=== PATIENT | male | born 1940 | race Caucasian/White ===

== ENCOUNTER → 2016-03-22 | Outpatient (REF) | payer MEDICARE ==
[~2016-03-22] MED LIST: /ADVA50050 IN; /ADVA50050 INH; /CIPR75TA OR; /MOXI40TA OR; ADV250INH INH; ALBU17IN INH; ALBU17IN2 INH; ALBUTEROL INH; ALPR0.25 PO; CLEO150C PO; COLA100C2 OR; LABE100T2 OR; LEVA250T PO; MYCOSTATIN SS; POTA75TA OR; PRED10TA PO; PRED20TA OR; PRED50TA OR; XANA0.25 PO
== END ==
LOC: M LAB REF 12:54
PROVIDERS: ATTEND Surgery
DX: D04.4 Carcinoma in situ of skin of scalp and neck (principal)

== ENCOUNTER 2016-05-03 12:54 | Emergency (ER) | payer MEDICARE ==
[~2016-05-03] VITALS: Ht 175.3 cm; Wt 65.8 kg
[2016-05-03] MEDS: IPRATROPIUM 0.5MG/ALBUTEROL 2.5MG INH SOL UD 3ML (DUONEB)(J7620) NEB SCH ×3 (14:48→15:06)
--- NOTE | 2016-05-03 15:52 | REP ---
Chest x-ray: Two views. History: Shortness of breath. Comparison study June 14, 2015. Findings: The lungs are hyperinflated as before consistent with COPD. There is a increase in the AP diameter of the chest and flattening of the diaphragms. No infiltrate is seen. EKG monitoring electrodes and oxygen delivery tubing are seen. There are degenerative changes in the thoracic spine. Heart size is normal. Pulmonary vasculature is not increased. Nipple silhouettes are visible in the mid lung field bilaterally as before. Impression: Hyperinflation consistent with COPD. No acute infiltrate. Signed by Lam Hong MD 05/03/2016 05:45 P
[2016-05-03] MEDS ORDERED: DOXY-278 PO (15:54)
[2016-05-03] MEDS ORDERED: MEDR4PAK PO (15:55)
[2016-05-03] MEDS ORDERED: DOXYCYCLINE HYCLATE 100 MG TAB PO ONE (16:00)
[2016-05-03 17:21] VITALS: BP 177/86
--- NOTE | 2016-05-04 20:07 | ECGEPIP ---
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
== END 2016-05-03 17:33 | disposition home or self-care (01) ==
LOC: M ED 14:27
DX: J44.1 Chronic obstructive pulmonary disease with (acute) exacerbation (principal); K40.90 Unilateral inguinal hernia, without obstruction or gangrene, not specified as recurrent; Z87.891 Personal history of nicotine dependence; Z85.038 Personal history of other malignant neoplasm of large intestine; Z91.041 Radiographic dye allergy status; Z88.8 Allergy status to other drugs, medicaments and biological substances; Z88.1 Allergy status to other antibiotic agents; Z88.0 Allergy status to penicillin; Z91.018 Allergy to other foods; Z91.010 Allergy to peanuts; Z79.899 Other long term (current) drug therapy

== ENCOUNTER 2016-11-28 14:15 | Emergency (ER) | payer MEDICARE ==
[~2016-11-28] VITALS: Ht 175.3 cm; Wt 72.7 kg
[~2016-11-28 14:15] MED LIST changes: +DOXY-278 PO; +LEVA1TAB PO; -LEVA250T PO; +MEDR4PAK PO
[2016-11-28] MEDS ORDERED: ASPIRIN 81 MG CHEW TABLET PO ONE (14:30)
[2016-11-28 14:57] LABS: BASO % 0.2 % (0.0-1.0); EOS % 0.1 % (0.0-3.0); IMMATURE GRANULOCYTE % 0.3 % (0-0); LYMPH # 0.8 10^3/uL (1.5-4.5); MEAN CORPUSCULAR HEMOGLOBIN 31.4 pg (27.0-33.0); MEAN CORPUSCULAR HGB CONC 33.2 g/dl (32.0-36.5); MEAN CORPUSCULAR VOLUME 94.7 fl (80.0-96.0); MONO % 7.4 % (0.0-5.0); NEUTROPHILS # 13.9 10^3/uL (1.8-7.7); PLATELET COUNT, AUTOMATED 259 10^3/uL (150-450); RED CELL DISTRIBUTION WIDTH 12.1 % (11.5-14.5)
[2016-11-28] MEDS ORDERED: IPRATROPIUM 0.5MG/ALBUTEROL 2.5MG INH SOL UD 3ML (DUONEB)(J7620) NEB ONE (15:00)
[2016-11-28] MEDS ORDERED: methylPREDNISolone INJ 125 MG/2 ML VIAL (J2930) IV ONE (15:00)
[2016-11-28] MEDS ORDERED: diphenhydrAMINE INJ 50MG/ML VIAL (J1200) IV ONE (15:15)
--- NOTE | 2016-11-28 15:23 | REP ---
CHEST, PORTABLE: AP portable view of the chest is performed and compared to prior studies, the most recent of which is 05/03/2016. There is diffuse interstitial fibrosis which appears essentially stable. No definite superimposed acute infiltrate is seen. Heart is normal in size and the mediastinal silhouette is unchanged. There appears to be a nipple shadow projecting at the left lung base. IMPRESSION: Chronic changes appear stable without evidence of acute infiltrate. Signed by Terry Self MD 11/28/2016 04:16 P
[2016-11-28 15:28] LABS: ALBUMIN 3.8 GM/DL (3.2-5.2); ALKALINE PHOSPHATASE 69 U/L (45-117); ALT/SGPT 19 U/L (12-78); ANION GAP 6 MEQ/L (8-16); AST/SGOT 15 U/L (15-37); BILIRUBIN,DIRECT 0.2 MG/DL (0.0-0.2); BILIRUBIN,TOTAL 1.1 MG/DL (0.2-1.0); BLOOD UREA NITROGEN 13 MG/DL (7-18); CALCIUM LEVEL 9.1 MG/DL (8.8-10.2); CARBON DIOXIDE LEVEL 29 MEQ/L (21-32); CHLORIDE LEVEL 101 MEQ/L (98-107); CREATININE FOR GFR 1.19 MG/DL (0.70-1.30); GLOMERULAR FILTRATION RATE > 60.0 (>42); GLUCOSE, FASTING 109 MG/DL (83-110); POTASSIUM SERUM 4.1 MEQ/L (3.5-5.1); SODIUM LEVEL 136 MEQ/L (136-145); TOTAL PROTEIN 7.6 GM/DL (6.4-8.2)
[2016-11-28 15:35] LABS: ADD MORPHOLOGY? NO; MONO # 1.2 10^3/uL (0.0-0.8)
[2016-11-28] MEDS ORDERED: ISOVUE-370 76% 100ML VIAL (Q9967) As Ordered ONE (15:46)
--- NOTE | 2016-11-28 16:36 | REP ---
Chest CT with IV contrast, CT pulmonary angiography: There are no emboli in the pulmonary trunk or in the central pulmonary arteries. There are no emboli in the pulmonary lobe or segment branches. There are numerous bulla throughout the lung farr bilaterally compatible with bullous emphysema. There is a parenchymal scar inferiorly in the lingula, similar to the comparison CT of 07/29/2012. There is a calcified granuloma in the anterior segment of the lower lobe. There are no infiltrates or effusions. There is no mediastinal or hilar adenopathy. Thoracic aorta is unremarkable. Cardiac size normal. There is no pericardial effusion. The visualized upper abdominal contents are unremarkable except for renal cortical cysts. There is a nonobstructive calcification in the upper pole left kidney. Impression: There are no pulmonary emboli. There are no acute infiltrates or effusions. 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 There is a chronic parenchymal scar inferiorly in the lingula. There is a nonobstructive calculus in the upper pole of the left kidney. Signed by Terry Turpin MD 11/28/2016 04:27 P
[2016-11-28] MEDS ORDERED: DOXY100C37 PO (17:44)
[2016-11-28 18:01] VITALS: BP 151/65
--- NOTE | 2016-11-29 06:24 | ECGEPIP ---
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
== END 2016-11-28 18:10 | disposition home or self-care (01) ==
LOC: M ED 14:15
DX: R06.02 Shortness of breath (principal); R07.9 Chest pain, unspecified; J44.9 Chronic obstructive pulmonary disease, unspecified; Z87.891 Personal history of nicotine dependence
CPT/HCPCS: 36415; 71010; 71275; 80048; 80076; 82550; 82553; 83690; 83880; 84484; 85025; 93005; 93041; 94640; 94760; 96374; 96375; 99285; G0103; J1200; J2930; Q9967

== ENCOUNTER 2018-07-23 19:30 | Emergency (ER) | payer MEDICARE ==
[~2018-07-23 19:30] MED LIST changes: -/ADVA50050 IN; -/ADVA50050 INH; -/MOXI40TA OR; +ADVA1AER2 IN; +ADVA1AER2 INH; +AVEL1TAB2 OR; -DOXY-278 PO; +DOXY-350 PO; +DOXY100C37 PO; -LEVA1TAB PO; +LEVA250T13 PO; +PRED-351 PO; -PRED10TA PO
--- NOTE | 2018-07-23 21:11 | REP ---
Clinical: Hematuria. Technique: Axial noncontrast images from the lung bases to the pubic symphysis with coronal and sagittal re-formations. Comparison: 06/24/2007 Findings: Lung bases demonstrate emphysematous changes and fibrosis/scarring. Liver, spleen, pancreas, gallbladder, bilateral adrenal glands and right kidney are normal. Left kidney includes 2 mm nonobstructing calculus and rounded lesions suggesting simple and complex cysts. No perinephric stranding or hydroureteronephrosis. The enteric system is without obstruction or acute inflammatory process and postsurgical changes in the right lower quadrant may reflect prior appendectomy. Scattered sigmoid diverticula are appreciated along with left inguinal hernia containing nonobstructed sigmoid colon. Pelvis demonstrates a 2.0 cm bladder stone along with enlarged prostate gland having mass effect on the base of the bladder. No pelvic fluid or ascites. No free air. No adenopathy. Ventral hernia repair with mesh identified. Atherosclerotic changes to the aorta without aneurysm. Musculoskeletal structures demonstrate osteopenia and degenerative changes. Impression: 1. 2 mm nonobstructing left renal calculus and 2 cm bladder stone identified along with a rounded renal lesions suggesting simple and complex cysts. No perinephric stranding or hydroureteronephrosis. 2. Left inguinal hernia contains fat and nonobstructed sigmoid colon. 3. Scattered colonic diverticula without acute diverticulitis. 4. Enlarged prostate gland with mass effect on the base of the bladder. 5. Atherosclerotic changes to the vasculature and degenerative changes to the musculoskeletal structures. Electronically Signed by Donta Mohan MD 07/23/2018 09:03 P
[2018-07-23 21:21] LABS: BASO # 0.1 10^3/uL (0.0-0.2); BASO % 0.6 % (0.0-1.0); EOS # 0.2 10^3/uL (0.0-0.50); EOS % 1.7 % (0.0-3.0); HEMATOCRIT 42.5 % (42.0-52.0); HEMOGLOBIN 13.5 g/dl (13.5-17.5); LYMPH % 8.8 % (24.0-44.0); MEAN CORPUSCULAR HEMOGLOBIN 29.7 pg (27.0-33.0); MEAN CORPUSCULAR HGB CONC 31.8 g/dl (32.0-36.5); MEAN CORPUSCULAR VOLUME 93.4 fl (80.0-96.0); MONO # 0.6 10^3/uL (0.0-0.8); MONO % 5.5 % (0.0-5.0); NEUTROPHILS # 9.1 10^3/uL (1.8-7.7); NEUTROPHILS % 83.1 % (36.0-66.0); PLATELET COUNT, AUTOMATED 331 10^3/uL (150-450); RED BLOOD COUNT 4.55 10^6/uL (4.30-6.10)
[2018-07-23 21:28] LABS: VENOUS BASE EXCESS -0.6 (-2.0-2.0); VENOUS HCO3 27.6 MEQ/L (23.0-27.0); VENOUS PARTIAL PRESSURE CO2 60.7 mmHg (38.0-50.0); VENOUS PARTIAL PRESSURE O2 36.3 mmHg (30.0-50.0); VENOUS PH 7.276 UNITS (7.330-7.430); VENOUS STANDARD HCO3 23.1 MEQ/L; VENOUS TOTAL CO2 29.5 MEQ/L (24.0-28.0)
[2018-07-23 21:38] LABS: INR 0.98; PROTHROMBIN TIME 13.1 SECONDS (12.1-14.4)
[2018-07-23 22:00] LABS: ALBUMIN 3.2 GM/DL (3.2-5.2); ALT/SGPT 25 U/L (12-78); BILIRUBIN,DIRECT 0.1 MG/DL (0.0-0.2); BILIRUBIN,TOTAL 0.5 MG/DL (0.2-1.0); BLOOD UREA NITROGEN 17 MG/DL (7-18); CALCIUM LEVEL 8.7 MG/DL (8.8-10.2); CARBON DIOXIDE LEVEL 27 MEQ/L (21-32); CHLORIDE LEVEL 105 MEQ/L (98-107); CPK CREATINE PHOSPHOKINASE 113 U/L (39-308); GLOMERULAR FILTRATION RATE > 60.0 (>42); GLUCOSE, FASTING 83 MG/DL (70-100); MB/CK RELATIVE INDEX 1.77 (< OR =4); NT-PRO BNP 211 PG/ML (<450); POTASSIUM SERUM 4.5 MEQ/L (3.5-5.1); SODIUM LEVEL 142 MEQ/L (136-145); TOTAL PROTEIN 7.4 GM/DL (6.4-8.2); TROPONIN I < 0.02 NG/ML (< 0.10)
[2018-07-23 23:00] VITALS: BP 170/82
[2018-07-23] MEDS ORDERED: CEFD1CAP8 PO (23:07)
[2018-07-23] MEDS ORDERED: CEFDINIR 300 MG CAP (OMNICEF) PO ONE (23:15)
[2018-07-23] MEDS ORDERED: oxygen (23:23)
--- NOTE | 2018-07-24 09:05 | REP ---
PORTABLE CHEST X-RAY: Single view. HISTORY: Dyspnea and cough. COMPARISON CHEST X-RAY: November 28, 2016. FINDINGS: Oxygen delivery tubing is seen. The lungs are quite hyperinflated consistent with COPD. No infiltrate is seen. Pleural angles are sharp. Heart size is normal. 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 This is unchanged. IMPRESSION: Hyperinflation consistent with COPD. No acute abnormality. Azygos venous lobe. Electronically Signed by Lam Hong MD 07/24/2018 09:56 A
--- NOTE | 2018-07-24 19:29 | ECGEPIP ---
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
== END 2018-07-23 23:48 | disposition home or self-care (01) ==
LOC: M ED 19:30
DX: R06.02 Shortness of breath (principal); N30.91 Cystitis, unspecified with hematuria; N21.0 Calculus in bladder; K08.89 Other specified disorders of teeth and supporting structures; I10 Essential (primary) hypertension; J44.9 Chronic obstructive pulmonary disease, unspecified; N40.0 Benign prostatic hyperplasia without lower urinary tract symptoms; Z79.899 Other long term (current) drug therapy; Z99.81 Dependence on supplemental oxygen; Z87.891 Personal history of nicotine dependence

== ENCOUNTER 2022-08-28 19:31 | Inpatient (IN) | payer MEDICARE ==
[~2022-08-28] VITALS: Ht 175.3 cm; Wt 54.7 kg
[~2022-08-28 19:31] MED LIST changes: +CEFD300C41 PO; -DOXY-350 PO; +DOXY-443 PO; +DOXY-444 PO; -DOXY100C37 PO; +oxygen
[2022-08-28] MEDS ORDERED: NS 1,000 ML IV ONE (19:45)
[2022-08-28 20:06] LABS: VENOUS BASE EXCESS -3.4 (-2.0-2.0); VENOUS HCO3 27.5 MMOL/L (23.0-27.0); VENOUS O2 SATURATION 65.5 % (60.0-80.0); VENOUS PARTIAL PRESSURE CO2 79.2 mmHg (38.0-50.0); VENOUS PARTIAL PRESSURE O2 41.1 mmHg (30.0-50.0); VENOUS PH 7.159 UNITS (7.330-7.430); VENOUS STANDARD HCO3 20.9 MMOL/L
[2022-08-28 20:16] LABS: BASO % 0.2 % (0.0-1.0); HEMATOCRIT 43.1 % (42.0-52.0); HEMOGLOBIN 13.8 g/dl (13.5-17.5); LYMPH # 0.4 10^3/uL (1.5-5.0); LYMPH % 2.2 % (24.0-44.0); MEAN CORPUSCULAR HEMOGLOBIN 30.9 pg (27.0-33.0); MEAN CORPUSCULAR VOLUME 96.4 fl (80.0-96.0); MONO # 0.6 10^3/uL (0.0-0.8); MONO % 3.5 % (2.0-8.0); NEUTROPHILS # 15.9 10^3/uL (1.5-8.5); NEUTROPHILS % 93.5 % (36.0-66.0); PLATELET COUNT, AUTOMATED 178 10^3/uL (150-450); RED BLOOD COUNT 4.47 10^6/uL (4.30-6.10)
[2022-08-28 20:33] LABS: CK-MB VALUE MASS 11.7 NG/ML (<3.6)
[2022-08-28 20:34] LABS: ETHYL ALCOHOL (ETHANOL) < 0.003 % (0.000-0.010)
[2022-08-28 20:35] LABS: ALBUMIN 3.1 G/DL (3.2-5.2); ALKALINE PHOSPHATASE 77 U/L (46-116); ALT/SGPT 27 U/L (7.0-40); AST/SGOT 32 U/L (<34); BILIRUBIN,DIRECT 0.3 MG/DL (<0.4); BILIRUBIN,TOTAL 0.8 MG/DL (0.3-1.2); BLOOD UREA NITROGEN 60 MG/DL (9-23); CARBON DIOXIDE LEVEL 29 MMOL/L (20-31); CHLORIDE LEVEL 105 MMOL/L (98-107); CPK CREATINE PHOSPHOKINASE 843 U/L (46-171); CREATININE FOR GFR 2.52 MG/DL (0.70-1.30); GLOMERULAR FILTRATION RATE 26.1 (>35); GLUCOSE, FASTING 97 MG/DL (74-106); MAGNESIUM LEVEL 2.6 MG/DL (1.8-2.4); MB/CK RELATIVE INDEX 1.38 (< OR =4); POTASSIUM SERUM 4.7 MMOL/L (3.5-5.1); SODIUM LEVEL 145 MMOL/L (136-145); TOTAL PROTEIN 6.5 G/DL (5.7-8.2)
[2022-08-28 20:37] LABS: THYROID STIMULATING HORMONE 0.528 uIU/ML (0.55-4.78)
[2022-08-28 20:46] LABS: INR 1.05; PROTHROMBIN TIME 13.9 SECONDS (12.5-14.5)
[2022-08-28 20:47] LABS: PARTIAL THROMBOPLASTIN TIME 36.8 SECONDS (24.8-34.2)
[2022-08-28 21:19] LABS: ABG BASE EXCESS -2.2 (-2.0-2.0); ABG HCO3 26.7 MMOL/L (22.0-26.0); ABG O2 SATURATION 99.4 % (95.0-99.0); ABG PARTIAL PRESSURE O2 189.9 mmHg (75.0-100.0); ABG STANDARD HCO3 22.6 MMOL/L. (22.0-26.0); ABG TOTAL CO2 28.7 MMOL/L (23.0-31.0)
[2022-08-28 21:20] LABS: ABG PARTIAL PRESSURE CO2 65.7 mmHg (35.0-45.0); ABG pH (ARTERIAL) 7.226 UNITS (7.350-7.450)
[2022-08-28] MEDS ORDERED: NS IV ONE (21:45)
[2022-08-28] MEDS ORDERED: IPRATROPIUM 0.5MG/ALBUTEROL 2.5MG INH SOL UD 3ML (DUONEB) NEB ONE (22:35)
[2022-08-28] MEDS ORDERED: methylPREDNISolone 125MG 2ML VIAL IV ONE (22:35)
[2022-08-28] MEDS ORDERED: ALBUTEROL SULFATE 2.5MG/0.5ML INH NEB SOLN INH ONE (22:35)
[2022-08-28 22:38] LABS: RSV AMPLIFICATION NEGATIVE (NEGATIVE)
[2022-08-28] MEDS ORDERED: cefTRIAXone SOD 2 GM in D5W MINI-BAG PLUS 50 ML IV ONE (22:55)
[2022-08-28 23:04] LABS: MB/CK RELATIVE INDEX 1.26 (< OR =4)
[2022-08-29] VITALS (16 sets, daily range): BP systolic 112–172; BP diastolic 55–77; TEMP 97.2–99.1; O2SAT 88–99
[2022-08-29 00:02] LABS: AMPHETAMINES LEVEL URINE NEGATIVE (NEGATIVE); BARBITURATES URINE NEGATIVE (NEGATIVE); BENZODIAZEPINES URINE NEGATIVE (NEGATIVE); CANNABINOIDS URINE NEGATIVE (NEGATIVE); COCAINE METABOLITE URINE NEGATIVE (NEGATIVE); METHADONE URINE NEGATIVE (NEGATIVE); OPIATES URINE NEGATIVE (NEGATIVE); PHENCYCLIDINE URINE NEGATIVE (NEGATIVE)
[2022-08-29] MEDS ORDERED: MED REC IN PROGRESS XX SCH (00:40)
[2022-08-29] MEDS ORDERED: ALBU8.5H INH (01:52)
[2022-08-29] MEDS ORDERED: FURO20TA2 PO (01:52)
[2022-08-29] MEDS ORDERED: HOME MED LIST COMPLETE! XX SCH (01:55)
[2022-08-29] MEDS ORDERED: NS 1,000 ML IV SCH (02:20)
[2022-08-29] MEDS ORDERED: ALBUTEROL SULFATE 2.5MG/0.5ML INH NEB SOLN NEB PRN (02:20)
[2022-08-29] MEDS ORDERED: ASPIRIN 300 MG SUPP PR STA (02:20)
[2022-08-29 05:20] LABS: BASO % 0.1 % (0.0-1.0); HEMATOCRIT 37.2 % (42.0-52.0); LYMPH # 0.5 10^3/uL (1.5-5.0); LYMPH % 3.7 % (24.0-44.0); MEAN CORPUSCULAR HGB CONC 32.3 g/dl (32.0-36.5); MEAN CORPUSCULAR VOLUME 96.1 fl (80.0-96.0); MONO # 0.2 10^3/uL (0.0-0.8); MONO % 1.5 % (2.0-8.0); NEUTROPHILS # 13.3 10^3/uL (1.5-8.5); NEUTROPHILS % 94.3 % (36.0-66.0); PLATELET COUNT, AUTOMATED 153 10^3/uL (150-450); RED BLOOD COUNT 3.87 10^6/uL (4.30-6.10); WHITE BLOOD COUNT 14.1 10^3/uL (4.0-10.0)
[2022-08-29 05:46] LABS: ABG HCO3 20.4 MMOL/L (22.0-26.0); ABG PARTIAL PRESSURE CO2 39.3 mmHg (35.0-45.0); ABG PARTIAL PRESSURE O2 92.4 mmHg (75.0-100.0); ABG STANDARD HCO3 20.4 MMOL/L. (22.0-26.0); ABG TOTAL CO2 21.6 MMOL/L (23.0-31.0); ABG pH (ARTERIAL) 7.334 UNITS (7.350-7.450)
[2022-08-29 05:46] LABS: ALBUMIN 2.7 G/DL (3.2-5.2); BILIRUBIN,TOTAL 0.5 MG/DL (0.3-1.2); CALCIUM LEVEL 8.3 MG/DL (8.3-10.6); CREATININE FOR GFR 2.19 MG/DL (0.70-1.30); GLOMERULAR FILTRATION RATE 30.7 (>35); POTASSIUM SERUM 4.4 MMOL/L (3.5-5.1); TOTAL PROTEIN 5.7 G/DL (5.7-8.2)
[2022-08-29] MEDS: IPRATROPIUM 0.5MG/ALBUTEROL 2.5MG INH SOL UD 3ML (DUONEB) NEB SCH ×2 (07:53→14:00)
[2022-08-29] MEDS ORDERED: methylPREDNISolone 40MG 1ML VIAL IV SCH ×2 (08:00→09:00)
[2022-08-29] MEDS: HEPARIN SOD (PORCINE) 5000UNITS/ML 1ML VIAL/SYRINGE SC SCH ×2 (08:54→20:08)
[2022-08-29] MEDS: LR 1,000 ML IV SCH ×2 (08:54→18:23)
[2022-08-29 13:48] LABS: CREATININE,RANDOM URINE 116.7 MG/DL
[2022-08-29] MEDS: ALBUTEROL 90 MCG/ACT 8GM HFA INHALER INH PRN ×2 (16:07→19:21)
[2022-08-29] MEDS: TAMSULOSIN 0.4 MG CAP PO SCH (17:07)
[2022-08-29 19:00] LABS: CALCIUM LEVEL 8.8 MG/DL (8.3-10.6); CREATININE FOR GFR 1.82 MG/DL (0.70-1.30); GLOMERULAR FILTRATION RATE 38.1 (>35); POTASSIUM SERUM 3.7 MMOL/L (3.5-5.1)
[2022-08-29] MEDS: ADVAIR HFA 230/21MCG INHALER INH SCH (19:21)
[2022-08-29] MEDS: cefTRIAXone SOD 1 GM in D5W MINI-BAG PLUS 50 ML IV SCH (20:07)
[2022-08-29] MEDS ORDERED: cefTRIAXone SOD 2 GM in D5W MINI-BAG PLUS 50 ML IV SCH (21:00)
[2022-08-29] MEDS ORDERED: cefTRIAXone SOD 2GM VIAL IM SCH (23:30)
[2022-08-30] VITALS (7 sets, daily range): BP systolic 94–182; BP diastolic 53–93; TEMP 97.9–98.3; O2SAT 90–98
[2022-08-30 04:46] LABS: BASO % 0.1 % (0.0-1.0); HEMATOCRIT 30.3 % (42.0-52.0); LYMPH # 0.7 10^3/uL (1.5-5.0); LYMPH % 5.2 % (24.0-44.0); MEAN CORPUSCULAR HEMOGLOBIN 31.2 pg (27.0-33.0); MEAN CORPUSCULAR VOLUME 94.4 fl (80.0-96.0); MONO # 0.4 10^3/uL (0.0-0.8); NEUTROPHILS # 11.5 10^3/uL (1.5-8.5); NEUTROPHILS % 91.1 % (36.0-66.0); PLATELET COUNT, AUTOMATED 121 10^3/uL (150-450); RED BLOOD COUNT 3.21 10^6/uL (4.30-6.10); WHITE BLOOD COUNT 12.6 10^3/uL (4.0-10.0)
[2022-08-30 05:08] LABS: CALCIUM LEVEL 8.7 MG/DL (8.3-10.6); CREATININE FOR GFR 1.58 MG/DL (0.70-1.30); GLOMERULAR FILTRATION RATE 44.8 (>35); POTASSIUM SERUM 3.6 MMOL/L (3.5-5.1)
[2022-08-30 05:42] LABS: ABG BASE EXCESS 0.7 (-2.0-2.0); ABG HCO3 25.2 MMOL/L (22.0-26.0); ABG O2 SATURATION 98.6 % (95.0-99.0); ABG PARTIAL PRESSURE CO2 39.6 mmHg (35.0-45.0); ABG PARTIAL PRESSURE O2 124.7 mmHg (75.0-100.0); ABG STANDARD HCO3 25.2 MMOL/L. (22.0-26.0); ABG TOTAL CO2 26.4 MMOL/L (23.0-31.0); ABG pH (ARTERIAL) 7.421 UNITS (7.350-7.450)
[2022-08-30] MEDS: TAMSULOSIN 0.4 MG CAP PO SCH (08:36)
[2022-08-30] MEDS: ASPIRIN 81MG ENTERIC TABLET PO SCH (08:36)
[2022-08-30] MEDS: HEPARIN SOD (PORCINE) 5000UNITS/ML 1ML VIAL/SYRINGE SC SCH ×2 (08:36→20:32)
[2022-08-30] MEDS: predniSONE 20 MG TAB PO SCH (08:36)
[2022-08-30] MEDS: ADVAIR HFA 230/21MCG INHALER INH SCH ×2 (08:51→19:36)
[2022-08-30] MEDS: ALBUTEROL 90 MCG/ACT 8GM HFA INHALER INH PRN ×4 (08:52→23:32)
[2022-08-30] MEDS ORDERED: [UNRECOGNIZED DRUG - OTHER] IM.IMMUN ONE (12:55)
[2022-08-30] MEDS ORDERED: COVID IM.IMMUN ONE (12:55)
[2022-08-30] MEDS: cefTRIAXone SOD 1 GM in D5W MINI-BAG PLUS 50 ML IV SCH (20:32)
[2022-08-31 06:00] VITALS: BP 133/78; TEMP 98.2; O2SAT 93
[2022-08-31 07:02] LABS: BASO % 0.1 % (0.0-1.0); HEMOGLOBIN 10.2 g/dl (13.5-17.5); LYMPH # 0.9 10^3/uL (1.5-5.0); LYMPH % 7.5 % (24.0-44.0); MEAN CORPUSCULAR HEMOGLOBIN 30.8 pg (27.0-33.0); MEAN CORPUSCULAR HGB CONC 32.9 g/dl (32.0-36.5); MEAN CORPUSCULAR VOLUME 93.7 fl (80.0-96.0); MONO # 0.6 10^3/uL (0.0-0.8); MONO % 5.3 % (2.0-8.0); NEUTROPHILS # 10.1 10^3/uL (1.5-8.5); NEUTROPHILS % 86.2 % (36.0-66.0); PLATELET COUNT, AUTOMATED 132 10^3/uL (150-450); RED BLOOD COUNT 3.31 10^6/uL (4.30-6.10); WHITE BLOOD COUNT 11.7 10^3/uL (4.0-10.0)
[2022-08-31 07:25] LABS: CALCIUM LEVEL 8.4 MG/DL (8.3-10.6); CREATININE FOR GFR 1.27 MG/DL (0.70-1.30); GLOMERULAR FILTRATION RATE 57.7 (>35); POTASSIUM SERUM 3.9 MMOL/L (3.5-5.1)
[2022-08-31] MEDS: ADVAIR HFA 230/21MCG INHALER INH SCH ×2 (07:35→19:38)
[2022-08-31] MEDS: ALBUTEROL 90 MCG/ACT 8GM HFA INHALER INH PRN ×4 (07:36→23:35)
[2022-08-31 07:37] VITALS: O2SAT 91
[2022-08-31] MEDS ORDERED: PRED10TA2 PO (08:50)
[2022-08-31] MEDS ORDERED: AZIT500T5 PO (08:50)
[2022-08-31] MEDS ORDERED: TREL1AER PO (08:50)
[2022-08-31] MEDS: HEPARIN SOD (PORCINE) 5000UNITS/ML 1ML VIAL/SYRINGE SC SCH ×3 (09:00→21:00)
[2022-08-31] MEDS: ASPIRIN 81MG ENTERIC TABLET PO SCH (09:21)
[2022-08-31] MEDS: TAMSULOSIN 0.4 MG CAP PO SCH (09:22)
[2022-08-31] MEDS: predniSONE 20 MG TAB PO SCH (09:22)
[2022-08-31] MEDS ORDERED: LR 1,000 ML IV ONE (10:20)
[2022-08-31 13:50] LABS: BLOOD UREA NITROGEN 36 MG/DL (9-23); CALCIUM LEVEL 8.3 MG/DL (8.3-10.6); CARBON DIOXIDE LEVEL 32 MMOL/L (20-31); CHLORIDE LEVEL 110 MMOL/L (98-107); CREATININE FOR GFR 1.21 MG/DL (0.70-1.30); GLOMERULAR FILTRATION RATE > 60.0 (>35); GLUCOSE, FASTING 119 MG/DL (74-106); POTASSIUM SERUM 3.8 MMOL/L (3.5-5.1); SODIUM LEVEL 145 MMOL/L (136-145)
[2022-08-31 14:30] VITALS: BP 135/76; TEMP 98.2; O2SAT 93
[2022-08-31 20:03] VITALS: BP 135/75; TEMP 98.1; O2SAT 95
[2022-08-31] MEDS: cefTRIAXone SOD 1 GM in D5W MINI-BAG PLUS 50 ML IV SCH (21:17)
[2022-09-01 05:42] VITALS: BP 143/81; TEMP 97.9; O2SAT 95
[2022-09-01] MEDS: ALBUTEROL 90 MCG/ACT 8GM HFA INHALER INH PRN (07:18)
[2022-09-01] MEDS: ADVAIR HFA 230/21MCG INHALER INH SCH ×2 (07:18→19:13)
[2022-09-01 07:19] VITALS: O2SAT 91
[2022-09-01] MEDS: TAMSULOSIN 0.4 MG CAP PO SCH (08:21)
[2022-09-01] MEDS: ASPIRIN 81MG ENTERIC TABLET PO SCH (08:22)
[2022-09-01] MEDS: predniSONE 20 MG TAB PO SCH (08:22)
[2022-09-01] MEDS: HEPARIN SOD (PORCINE) 5000UNITS/ML 1ML VIAL/SYRINGE SC SCH ×2 (08:22→19:57)
[2022-09-01] MEDS ORDERED: FOSFOMYCIN TROMETHAMINE 3 GM POWDER PACKET (MONUROL) PO ONE (12:00)
[2022-09-01] MEDS: ALBUTEROL 90 MCG/ACT 8GM HFA INHALER INH SCH ×4 (12:10→23:27)
[2022-09-01 14:00] VITALS: BP 152/81; TEMP 98.2; O2SAT 93
[2022-09-01 20:47] VITALS: BP 154/81; TEMP 98.1; O2SAT 98
[2022-09-02] MEDS: ALBUTEROL 90 MCG/ACT 8GM HFA INHALER INH SCH ×6 (03:04→23:15)
[2022-09-02 05:47] VITALS: BP 149/77; TEMP 98.2; O2SAT 97
[2022-09-02] MEDS: ADVAIR HFA 230/21MCG INHALER INH SCH ×2 (08:24→20:22)
[2022-09-02] MEDS: TAMSULOSIN 0.4 MG CAP PO SCH (08:46)
[2022-09-02] MEDS: predniSONE 20 MG TAB PO SCH (08:47)
[2022-09-02] MEDS: HEPARIN SOD (PORCINE) 5000UNITS/ML 1ML VIAL/SYRINGE SC SCH ×2 (08:48→20:17)
[2022-09-02] MEDS: ASPIRIN 81MG ENTERIC TABLET PO SCH (08:49)
[2022-09-02 14:00] VITALS: BP 124/60; TEMP 98.2; O2SAT 93
[2022-09-02 22:05] VITALS: BP 120/62; TEMP 98.4; O2SAT 96
[2022-09-03] MEDS: ALBUTEROL 90 MCG/ACT 8GM HFA INHALER INH SCH ×5 (04:00→19:57)
[2022-09-03 05:44] VITALS: BP 122/63; TEMP 98.4; O2SAT 94
[2022-09-03] MEDS: ADVAIR HFA 230/21MCG INHALER INH SCH ×2 (08:26→19:57)
[2022-09-03] MEDS: TAMSULOSIN 0.4 MG CAP PO SCH (08:48)
[2022-09-03] MEDS: HEPARIN SOD (PORCINE) 5000UNITS/ML 1ML VIAL/SYRINGE SC SCH (08:48)
[2022-09-03] MEDS: predniSONE 20 MG TAB PO SCH (08:48)
[2022-09-03] MEDS: ASPIRIN 81MG ENTERIC TABLET PO SCH (08:49)
[2022-09-03 14:00] VITALS: BP 128/67; TEMP 98.6; O2SAT 94
[2022-09-03] MEDS ORDERED: RIVAROXABAN 10MG TAB (XARELTO) PO SCH (18:00)
[2022-09-03 22:00] VITALS: BP 111/46; TEMP 98.1; O2SAT 92
[2022-09-04] MEDS: ALBUTEROL 90 MCG/ACT 8GM HFA INHALER INH SCH ×5 (00:14→16:00)
[2022-09-04 06:00] VITALS: BP 99/48; TEMP 98.1; O2SAT 96
[2022-09-04 07:59] VITALS: BP 100/58
[2022-09-04] MEDS: ADVAIR HFA 230/21MCG INHALER INH SCH (08:22)
[2022-09-04] MEDS: ASPIRIN 81MG ENTERIC TABLET PO SCH (09:19)
[2022-09-04] MEDS: TAMSULOSIN 0.4 MG CAP PO SCH (09:19)
[2022-09-04] MEDS: predniSONE 20 MG TAB PO SCH (09:19)
[2022-09-04] MEDS ORDERED: SODIUM BICARBONATE 8.4% INJ 50ML SYRINGE ONE (18:04)
[2022-09-04] MEDS ORDERED: EPINEPHrine 1MG/10ML SYRINGE 1.5IN ONE (18:04)
[2022-09-04] MEDS ORDERED: CALCIUM CHLORIDE 10% 1 GM/10 ML SYR ONE (18:04)
== END 2022-09-04 18:05 | disposition expired | DRG 871 ==
LOC: M ED 19:31 → M ED INP 08-29 02:11 → M ICU 08-29 04:21 → M MSPAV 08-30 17:30
PROVIDERS: ADMIT Internal Medicine; ATTEND Internal Medicine
PROC: B246ZZZ Ultrasonography of Right and Left Heart (ICD-10-PCS; principal; 2022-08-29)
DX: A41.9 Sepsis, unspecified organism (principal); J96.21 Acute and chronic respiratory failure with hypoxia; J96.22 Acute and chronic respiratory failure with hypercapnia; I21.A1 Myocardial infarction type 2; N17.0 Acute kidney failure with tubular necrosis; E87.20 Acidosis, unspecified; N39.0 Urinary tract infection, site not specified; M62.82 Rhabdomyolysis; J44.1 Chronic obstructive pulmonary disease with (acute) exacerbation; N40.0 Benign prostatic hyperplasia without lower urinary tract symptoms; R65.20 Severe sepsis without septic shock; B35.1 Tinea unguium; Z99.81 Dependence on supplemental oxygen; Z79.899 Other long term (current) drug therapy; Z20.822 Contact with and (suspected) exposure to COVID-19; Z91.041 Radiographic dye allergy status; Z88.0 Allergy status to penicillin; Z88.1 Allergy status to other antibiotic agents; Z88.8 Allergy status to other drugs, medicaments and biological substances; Z91.010 Allergy to peanuts; Z91.018 Allergy to other foods; Z85.038 Personal history of other malignant neoplasm of large intestine; Z90.49 Acquired absence of other specified parts of digestive tract; Z87.891 Personal history of nicotine dependence